=== PATIENT | male | born 1990 | race Caucasian/White ===

== ENCOUNTER 2020-02-22 18:59 | Emergency (ER) | payer OTHER ==
[~2020-02-22] VITALS: Ht 170.2 cm; Wt 108.9 kg
[2020-02-22] MEDS ORDERED: ESOMEPRAZOLE MA40 MG PO (19:12)
[2020-02-22 19:44] LABS: HEMATOCRIT 45.5 % (42.0-52.0); HEMOGLOBIN 15.9 gm/dL (14.0-18.0); MCH 30.1 pg (26.0-34.0); MCHC 34.9 g/dL (28.0-37.0); MCV 86.3 fL (80.0-100.0); RBC 5.27 mil/uL (4.50-6.00); RDW 13.6 % (10.5-14.5); WBC 10.5 thou/uL (4.0-11.0)
[2020-02-22 19:54] LABS: CALCIUM 9.5 mg/dL (8.5-10.1); CREATININE 1.1 mg/dL (0.7-1.3); POTASSIUM 3.2 mmol/L (3.5-5.1)
[2020-02-22 19:59] LABS: APTT 28.3 Seconds (24.5-32.8); PROTIME 10.3 Seconds (9.3-11.4)
[2020-02-22] MEDS ORDERED: ATIVAN1 M1 PO (20:58)
[2020-02-22] MEDS ORDERED: IMITREX 50 MG T50 MG PO (20:58)
[2020-02-22] MEDS ORDERED: PHENERGAN 25 MG25 M1 PO (20:58)
[2020-02-22 22:07] VITALS: BP 150/68
== END 2020-02-22 22:06 | disposition home or self-care (01) ==
LOC: ER 18:59
PROVIDERS: Emergency Medicine
DX: G43.909 Migraine, unspecified, not intractable, without status migrainosus (principal); R42 Dizziness and giddiness; R11.10 Vomiting, unspecified; F41.9 Anxiety disorder, unspecified; F12.90 Cannabis use, unspecified, uncomplicated; Z88.0 Allergy status to penicillin; Z79.899 Other long term (current) drug therapy